=== PATIENT | male | born 1990 | race Caucasian/White ===

== ENCOUNTER 2017-05-04 13:43 | Emergency (ER) | payer MEDICARE, MEDICAID ==
[~2017-05-04] VITALS: Ht 172.7 cm; Wt 95.5 kg
[~2017-05-04 13:43] MED LIST: AMOXICILLIN500 MG PO; ATIVAN1 MG PO; CIPRO500 MG OR; CLONAZEP ODT1 MG OR; CLONAZEP ODT2 MG OR; DEPAKOTE ER500 MG OR; DIAZEPAM5 MG PO; LORTAB 5-325 MG1 TAB PO; NAPROSYN500 MG PO; PENICILLN VK500 MG PO; QUETIAPINE FUM400 MG PO; SEROQUEL100 MG PO; SEROQUEL400 M1 PO; ULTRAM50 M1 PO; XANAX0.25 MG PO; ZYPREXA20 MG OR; [UNRECOGNIZED DRUG - REMARK] OR
[2017-05-04] MEDS ORDERED: MOTRIN400 MG PO (15:42)
[2017-05-04] MEDS ORDERED: AUGMENTIN875TAB PO (15:42)
[2017-05-04 15:45] VITALS: BP 145/87
== END 2017-05-04 15:50 | disposition home or self-care (01) ==
LOC: ED 13:43
DX: K08.89 Other specified disorders of teeth and supporting structures (principal)